=== PATIENT | male | born 1965 | race Caucasian/White ===

== ENCOUNTER 2018-03-30 15:34 | Outpatient (CLI) | payer OTHER ==
--- NOTE | 2018-03-31 11:54 | XRAY Report ---
THREE-VIEW RIGHT SHOULDER: CLINICAL INDICATION: Pain. FINDINGS: Internal and external rotational views and a scapular Y view of the right shoulder demonstrate mild degenerative changes of the acromioclavicular joint. There is no evidence of acute fracture or dislocation. No radiopaque foreign body is seen in the soft tissues. IMPRESSION: MILD DEGENERATIVE CHANGES OF THE ACROMIOCLAVICULAR JOINT. TD: 03/31/2018 11:53
== END 2018-03-30 15:35 | disposition home or self-care (01) ==
LOC: DI.N 15:34
PROVIDERS: ATTEND Physician Assistant Medical
DX: M25.511 Pain in right shoulder (principal)